=== PATIENT | female | born 1970 | race Caucasian/White ===

== ENCOUNTER 2019-11-10 05:01 | Emergency (ER) | payer MEDICAID ==
[~2019-11-10] VITALS: Ht 149.9 cm; Wt 56.0 kg
[2019-11-10] MEDS ORDERED: SODIUM CHLORIDE 0.9% 1,000 ML IV ONE (06:19)
[2019-11-10] MEDS ORDERED: ALBUTEROL (0.083%) 2.5MG/3ML NEB HHN STA (06:19)
[2019-11-10] MEDS ORDERED: METHYLPREDNISOLONE SOD SUCC 125 MG/2 ML VIAL IV STA (06:19)
[2019-11-10 07:55] LABS: CHLORIDE 108 mEq/L (98-107); HEMATOCRIT. 37.5 % (36.0-48.0); HEMOGLOBIN. 12.3 g/dL (12.0-16.0); MEAN CORPUSCULAR HEMOGLOBIN 26.4 pg (28.0-32.0); MEAN CORPUSCULAR VOLUME 80.6 fL (81.0-99.0); MEAN PLATELET VOLUME 9.7 fl (7.4-10.4); PLATELET 317 x1000/uL (130-400); RED BLOOD CELL COUNT 4.65 mill/uL (4.2-5.4); RED CELL DISTRIBUTION WIDTH 16.1 % (11.6-14.6)
[2019-11-10 08:18] LABS: PLATELET ESTIMATE NORMAL
[2019-11-10 08:19] VITALS: BP 137/74
[2019-11-10] MEDS ORDERED: ALBUTEROL 6.7GM HFA INHALER ORI ONE (09:00)
== END 2019-11-10 10:56 | disposition home or self-care (01) ==
LOC: ER 05:01
DX: J45.901 Unspecified asthma with (acute) exacerbation (principal); R06.03 Acute respiratory distress; R03.0 Elevated blood-pressure reading, without diagnosis of hypertension; Z86.74 Personal history of sudden cardiac arrest; F17.200 Nicotine dependence, unspecified, uncomplicated; Z87.19 Personal history of other diseases of the digestive system
CPT/HCPCS: 36415; 71045; 80053; 85025; 93005; 96374; 99285; J2930; J7030

== ENCOUNTER 2019-11-20 07:53 | Emergency (ER) | payer MEDICAID ==
[~2019-11-20] VITALS: Ht 157.5 cm; Wt 49.0 kg
[2019-11-20] MEDS ORDERED: MAGNESIUM 2 G PREMIX 50 ML IV STA (08:02)
[2019-11-20] MEDS ORDERED: ALBUTEROL (0.083%) 2.5MG/3ML NEB HHN STA (08:02)
[2019-11-20] MEDS ORDERED: IPRATROPIUM BROMIDE (0.02%) 0.5MG/2.5ML NEB HHN STA (08:02)
[2019-11-20] MEDS ORDERED: METHYLPREDNISOLONE SOD SUCC 125 MG/2 ML VIAL IV STA (08:02)
[2019-11-20] MEDS ORDERED: SODIUM CHLORIDE 0.9% 1000ML BAG (SEPSIS BOLUS) IV ONE (08:15)
[2019-11-20 08:49] LABS: HEMATOCRIT. 40.2 % (36.0-48.0); HEMOGLOBIN. 13.2 g/dL (12.0-16.0); MEAN CORPUSCULAR HEMOGLOBIN 26.2 pg (28.0-32.0); MEAN CORPUSCULAR VOLUME 80.1 fL (81.0-99.0); MEAN PLATELET VOLUME 9.1 fl (7.4-10.4); PLATELET 358 x1000/uL (130-400); RED BLOOD CELL COUNT 5.02 mill/uL (4.2-5.4)
[2019-11-20 08:55] LABS: CHLORIDE 106 mEq/L (98-107)
[2019-11-20 08:56] LABS: PROTHROMBIN TIME 10.4 sec (9.6-11.0)
[2019-11-20 09:00] LABS: ETHANOL BLOOD 23 mg/dL
[2019-11-20 09:03] LABS: HCG SCREEN NEGATIVE
[2019-11-20 09:22] LABS: BG BASE EXCESS -1.9 mmol/L (-2.0-2.0); BG DEOXYHEMOGLOBIN 0.7 % (0.0-5.0); BG HCO3 ACT 24.8 mmol/L (22.0-26.0); BG METHEMOGLOBIN 0.2 % (0.0-1.5); BG OXYGEN SATURATION 99.3 % (92.0-98.5); BG OXYHEMOGLOBIN 99.1 % (94.0-97.0); BG PCO2 50.1 mmHg (35.0-45.0); BG PH 7.312 (7.350-7.450); BG PO2 273.9 mmHg (75.0-100.0); BG SAMPLE SITE RIGHT RADIAL; BG TOTAL HEMOGLOBIN 12.9 g/dL (12.0-18.0)
[2019-11-20 09:38] LABS: PLATELET ESTIMATE NORMAL
[2019-11-20 10:30] LABS: CLARITY URINE CLEAR (CLEAR); COLOR URINE YELLOW (YELLOW); KETONES URINE NEGATIVE (NEGATIVE); LEUKOCYTE ESTERASE URINE NEGATIVE (NEGATIVE); NITRITE URINE NEGATIVE (NEGATIVE); OCCULT BLOOD URINE NEGATIVE (NEGATIVE); PH URINE 6.5 (4.5-8.0); PROTEIN URINE NEGATIVE (NEGATIVE); SPECIFIC GRAVITY URINE 1.008 (1.005-1.030); UROBILINOGEN URINE 0.2 E.U./dL (0.2-1.0)
[2019-11-20] MEDS ORDERED: PREDNISONE 20MG TABLET PO ONE (10:30)
[2019-11-20 10:41] LABS: *BARBITURATES SCREEN URINE NEGATIVE (NEGATIVE)
[2019-11-20 10:42] LABS: *BENZODIAZEPINES SCREEN URINE NEGATIVE (NEGATIVE); *COCAINE SCREEN URINE NEGATIVE (NEGATIVE); METHADONE URINE SCREEN NEGATIVE (NEGATIVE); OPIATES URINE SCREEN NEGATIVE (NEGATIVE); PHENCYCLIDINE URINE SCREEN NEGATIVE (NEGATIVE)
[2019-11-20 10:43] LABS: CANNABINOID URINE SCREEN NEGATIVE (NEGATIVE)
[2019-11-20 10:57] LABS: *AMPHETAMINES SCREEN URINE PRESUMTIVE POSITIVE (NEGATIVE)
[2019-11-20] MEDS ORDERED: AMMONIA INHALATION 1EA INH ONE (12:00)
[2019-11-20 12:47] VITALS: BP 114/76
== END 2019-11-20 12:48 | disposition home or self-care (01) ==
LOC: ER 08:06
DX: J45.901 Unspecified asthma with (acute) exacerbation (principal); F10.129 Alcohol abuse with intoxication, unspecified; Y90.1 Blood alcohol level of 20-39 mg/100 ml; F41.9 Anxiety disorder, unspecified; J45.909 Unspecified asthma, uncomplicated
CPT/HCPCS: 36415; 36600; 71045; 80053; 80305; 80320; 81003; 81025; 82375; 82805; 83605; 83690; 83880; 84145; 84484; 84703; 85025; 85610; 87040; 93005; 94640; 96365; 96375; 99285; J2930; J3475; J7030; J7512; Z7610; G0480

== ENCOUNTER 2019-12-15 05:39 | Emergency (ER) | payer MEDICAID ==
[~2019-12-15] VITALS: Ht 152.4 cm; Wt 50.0 kg
[2019-12-15] MEDS ORDERED: IPRATROPIUM BROMIDE (0.02%) 0.5MG/2.5ML NEB HHN STA (06:07)
[2019-12-15] MEDS ORDERED: PREDNISONE 20MG TABLET PO STA (06:07)
[2019-12-15] MEDS ORDERED: ALBUTEROL (0.083%) 2.5MG/3ML NEB HHN STA (06:07)
[2019-12-15] MEDS ORDERED: ALBUTEROL (0.5%) 2.5MG/0.5ML NEB HHN ONE (06:38)
[2019-12-15 08:05] VITALS: BP 132/89
== END 2019-12-15 08:07 | disposition home or self-care (01) ==
LOC: ER 05:51
DX: J45.901 Unspecified asthma with (acute) exacerbation (principal); J18.9 Pneumonia, unspecified organism
CPT/HCPCS: 71045; 94640; 99283; J7512; Z7610

== ENCOUNTER 2019-12-30 10:24 | Emergency (ER) | payer MEDICAID ==
[~2019-12-30] VITALS: Ht 160 cm; Wt 59.0 kg
[2019-12-30 10:26] VITALS: BP 145/90
== END 2019-12-30 11:08 | disposition home or self-care (01) ==
LOC: ER 10:24
DX: J45.901 Unspecified asthma with (acute) exacerbation (principal)
CPT/HCPCS: 99283